=== PATIENT | female | born 1960 | race Caucasian/White ===

== ENCOUNTER → 2019-11-05 11:22 | Outpatient (CLI) | payer MEDICARE, MEDICAID, SELFPAY ==
--- NOTE | 2019-11-05 11:27 | NM_ITS ---
APPROVED REPORT Exam: Nuclear Stress Test Indication: HTN, OBESITY, D.M., HYPERLIPIDEMIA, FORMER SMIKER, FM HX, SOB, SYNCOPE, FATIGUE, STROKE Patient Location: Outpatient Stress Tech: Re Borges [place] Tech:Sonia Galdamez ARRPatrick RT(R)(N) Ht: 5 ft 10 in Wt: 255 lbs Bra Size: D HR: 63 bpm BP: 120/71 mmHg BSA: 2.31 m2 BMI: 36.5 History: HTN, OBESITY, D.M., HYPERLIPIDEMIA, FORMER SMIKER, FM HX, SOB, SYNCOPE, FATIGUE, STROKE Procedure: Patient received a 0.4 mg of intravenous Lexiscan, resting heart rate 63 bpm, resting blood pressure 120/71 mmHg, with Lexiscan maximum heart rate achived was 75 bpm which is Less than 85 % of the maximum predicted heart rate and blood pressure was 118/63 mmHg. Electrocardiogram Resting electrocardiogram showed sinus rhythm, with Lexiscan there is less than 1.[address] segment depression noted from the baseline EKG. The EKG portion of the Lexiscan Myoview is nondiagnostic. Cardiac Stress and Resting SPECT Images: Cardiac Stress and Resting SPECT images were obtained using technetium 99m Myoview 31.1 mCi stress and 10.62 mCi at rest. Gated SPECT for analysis of segmental wall motion and calculation of the ejection fraction also done. Cardiac stress and resting SPECT images show decrease tracer activity in the anterolateral wall which improves on the resting images suggestive of reversible ischemia, computer derived ejection fraction is 60% with no regional wall motion abnormality, right ventricle is normal size and contractility. This is study is technically limited due to patient's body habitus. Conclusion: 1. The EKG portion of the Lexiscan Myoview is nondiagnostic. 2. Scintigraphic evidence of mild reversible ischemia involving the anterolateral wall, however this study is technically limited due to patient's body habitus, possibility of soft tissue attenuation cannot be entirely excluded, computer derived ejection fraction 60% with no regional wall motion abnormality, right ventricle is normal size and contractility. 3. Likely abnormal Lexiscan Myoview study. Electronically signed by : Marc Juarez, 11/05/2019 20:34:30
--- NOTE | 2019-11-05 11:27 | CT_ITS ---
PROCEDURE: CT HEAD/BRAIN WO CON CLINICAL INDICATION: dizziness, hx of TIA Left arm and leg weakness COMPARISON: No exams were available for comparison TECHNIQUE: Axial images obtained. All CT scans at the facility use one or more dose reduction, viz: automated exposure control, ma/kV adjustment per patient size (including targeted exams where dose is matched to indication, i.e. head), or iterative reconstruction technique. FINDINGS: No midline shift, mass effect, intracranial hemorrhage, hydrocephalus, or extra-axial fluid collection is evident. The calvarium has an unremarkable appearance. No mastoid effusion. No sinus air-fluid level. IMPRESSION: No acute intracranial finding Dictated by: Kiran Lacy MD 11/05/2019 16:57 Electronically signed by Kiran Lacy MD in [place] 11/05/2019 16:57
--- NOTE | 2019-11-05 11:29 | CA_ITS ---
APPROVED REPORT Left Lower Extremity Venous Study for DVT. Aging Room Operator: Joy Weiss RVT Indications Lower Extremity Pain: Lower Extremity Edema: Left Shortness of breath History of Smoking edema Risk Factors Obesity History of Smoking Vein Imaging CFV (L): compressive, spontaneous, phasic, augmentation FEM (L): compressive, spontaneous, phasic, augmentation POP (L): compressive, spontaneous, phasic, augmentation PTV (L): Compressible GSV (L): Compressible Peroneals (L):Compressible GAS (L): Compressible Findings Study suggests no evidence of DVT of the left lower extremity. Study suggests no evidence of SVT of the left lower extremity. Conclusion No evidence of DVT or superficial thrombophlebitis in the veins scanned of the left lower extremity. Electronically signed by : Kiran Lacy MD 11/05/2019 17:17:40
--- NOTE | 2019-11-05 11:29 | CA_ITS ---
APPROVED REPORT EXAM: Comprehensive 2D, Doppler, and color-flow Echocardiogram Application Development Liaison: Maya Cadet CRT Ht: 5 ft 9 in Wt: 257lbs BSA: 2.30 BP: 168/87 mmHg Indications: Chest Pain, Shortness of Breath, Diabetes, Peripheral Edema, Hyperlipidemia, Hypertension/HDD, TIA 2D Dimensions LVOT 1.96 cm (M/F) 1.5-2.5 M-Mode Dimensions RVDd 2.84 cm (0.9-2.6) LVDd 5.34 cm (3.5-5.7) LVDs 3.69 cm (3.5-5.7) IVSd 1.36 cm (0.6-1.1) PWd 0.59 cm (0.6-1.1) EF (Teich) 58.00% FS 30.90% EDV (Teich) 137.70 mL ESV (Teich) 57.80 mL LV Diastology E/A Ratio 1.07 Mitral Valve MV A Velocity 66.00 (40-130 cm/s) Left Ventricle Left atrium is mildly enlarged, left ventricle is normal size, mild concentric left ventricular hypertrophy, visually estimated ejection fraction 55% with no regional wall motion abnormality, grade 1 diastolic dysfunction seen without tissue Doppler evidence of raise left atrial pressure. Right Ventricle Right atrium and right ventricle are normal size and contractility. Aortic Valve Aortic valve is minimally thickened and fibrosed, there is no aortic stenosis or aortic insufficiency. Mitral Valve Mitral valve is grossly normal, there is mild mitral regurgitation. Tricuspid Valve Tricuspid valve is grossly normal, there is mild tricuspid regurgitation, calculated right ventricular systolic pressure within normal range. Great Vessels Aortic root is normal size. Pericardium No significant pericardial effusion noted. Conclusion 1. Mildly enlarged left atrium, normal left ventricular size, mild concentric left ventricular hypertrophy, visually estimated ejection fraction 55% with no regional wall motion abnormality, grade 1 diastolic dysfunction seen without tissue Doppler evidence of raise left atrial pressure. 2. Mild mitral and tricuspid regurgitation, calculated right ventricular systolic pressure within normal range. 3. No significant pericardial effusion noted. Electronically signed by : Marc Juarez, 11/05/2019 19:57:01
--- NOTE | 2019-11-05 11:29 | CA_ITS ---
APPROVED REPORT Exam: Pharmacologic Technologist: Re Borges Ht: 5 ft 9 in Wt: 257 lbs BSA: 2.30 m2 HR: 63 bpm BP: 120/71 mmHg Indications: Shortness of Air, LLE edema, Headaches Medical History Medications: Levothyroxine,,,,, Furosemide (LASIX),,,,, Metformin,,,,, Gabapentin,,,,, Diazepam,,,,, Glimepiride,,,,, TopIRAMATE,,,,, Albuterol,,,,, CloPIdogrel,,,,, Ibuprofen,,,,, DulOXETINE,,,,, LoraTidine,,,,, Stress Test Details Test: LEXISCAN HR Resting HR: 64 bpm Max Heart Rate (APMHR): 162 bpm Max HR Achieved: 77 bpm Target HR (85% APMHR): 137 bpm % of APMHR: 47 Recovery HR: 73 bpm BP Resting BP: 120.0/71.0 mmHg Max BP: 130.0/63.0 mmHg Recovery BP: 130.0/63.0 mmHg ECG Clinical Exercise duration: 04:02 min Highest Stage Achieved: Exercise capacity: 1.0 METs Stress ECG Conclusion Resting ECG: Normal sinus rhythm, low voltage QRS Symptoms: Mild shortness of air, brief stomach discomfort. No chest pain. Arrhythmias/Ectopy: None ST-T Changes: No significant changes. Conclusion: Unremarkable Lexiscan stress. Myoview images reported separately. Test Summary REST . . . . . . . Resting REST 04:12 . . 64 . 120/ 71 . . Stage 1 . . . . . . . Myoview Injected Stage 1 01:00 . . 72 . . . . Stage 2 01:00 . . 75 . . . . Stage 3 01:00 . . 74 . 117/ 63 . . Stage 4 01:00 . . 72 . 115/ 64 . . Stage 4 01:02 . . 72 . 115/ 64 . Stop exercise at 04:02 RECOVERY 01:00 . . 73 . 122/ 66 . . RECOVERY 02:00 . . 72 . 122/ 66 . . RECOVERY 03:00 . . 72 . 122/ 66 . . RECOVERY 03:24 . . 71 . 130/ 63 . . Electronically signed by : Marc Juarez, 11/05/2019 20:31:19
== END ==
PROVIDERS: PCP Physician Assistant Medical; Visit Provider Urology
DX: R42 Dizziness and giddiness (principal); R07.9 Chest pain, unspecified; R06.00 Dyspnea, unspecified; E11.9 Type 2 diabetes mellitus without complications; E78.2 Mixed hyperlipidemia; I11.0 Hypertensive heart disease with heart failure; R60.0 Localized edema
CPT/HCPCS: 70450; 78452; 93017; 93306; 93971; A9502; J2785

== ENCOUNTER 2019-12-19 07:09 | Day surgery (SDC) | payer MEDICARE, MEDICAID, SELFPAY ==
[2019-12-19] VITALS (13 sets, daily range): BP systolic 95–132; BP diastolic 53–83; PULSE 67–76; RESP 16–20; TEMP 36.6–36.8; O2SAT 90–100; BMI 38.2
--- NOTE | 2019-12-19 | IR_ITS ---
APPROVED REPORT Patient Location: Outpatient PROCEDURES Left heart catheterization Left ventriculogram Selective coronary angiogram INDICATION Angina pectoris, Abnormal stress test Informed consent was obtained prior to the procedure. COMPLICATIONS NONE Estimated Blood Loss: LESS THAN 10 ML TECHNIQUE One percent lidocaine used to anesthetize the right anterior aspect of the wrist. The right radial artery was accessed via the Seldinger technique. A 6 Polish sheath was placed in the right radial artery. 2.5 mg of verapamil, 800 mcg of nitroglycerin, 1mg Lidocaine and 5000 U Heparin were given through the arterial sheath. The trap catheter and 6 Polish JL 3 were also used to perform left heart catheterization, left ventriculogram and selective coronary angiogram. At the end of the procedure the sheath was removed good hemostasis was achieved using Traclet band, patient was transferred to the postop holding area in stable condition. ANGIOGRAPHIC RESULTS The left main artery Has an ostial proximal 10% narrowing The left anterior descending artery Is a large-caliber vessel with mild proximal and mid vessel 10% luminal irregularities The circumflex artery Is nondominant gives rise to 3 obtuse marginal arteries. The moderate first obtuse obtuse marginal artery has a proximal smooth 40 to 50% stenosis The right coronary artery Dominant normal The LLANES ventriculogram reveals Normal 65% The left ventricular end-diastolic pressure 20 mmHg IMPRESSION Mild ostial left main disease Moderate disease in the first obtuse marginal artery Normal ejection fraction Mildly elevated LVEDP PLAN 1. Medical management Electronically signed by : Wili Orourke, 12/19/2019 08:58:37
[2019-12-19 07:51] LABS: Basophils # 0.1 K/mm3 (0-0.2); Basophils % 0.6 % (0.1-2.0); Eosinophils # 0.3 K/mm3 (0.0-0.4); Eosinophils % 2.5 % (0.1-12.0); Hematocrit 45.2 % (37.0-47.0); Hemoglobin 14.9 g/dL (12.2-16.2); Lymphocytes # 2.7 K/mm3 (0.7-4.5); Lymphocytes % 22.7 % (10-50); Mean Corpuscular Hemoglobin 30.4 pg (27.0-31.2); Mean Corpuscular Volume 92.2 fl (81-99); Mean Platelet Volume 9.4 fl (7.4-10.4); Monocytes # 0.5 K/mm3 (0.1-1.0); Monocytes % 4.4 % (1.7-9.3); Neutrophils # 8.4 K/mm3 (1.8-7.8); Neutrophils % 69.9 % (37.0-80.0); Platelet Count 167 K/mm3 (142-424); Red Cell Distribution Width 14.5 % (11.5-17.5)
[2019-12-19 07:55] LABS: Chloride 98 mmol/L (98-107); Potassium 4.1 mmoL/L (3.5-5.1); Sodium 139 mmol/L (136-145)
[2019-12-19 07:58] LABS: Anion Gap 16.1 mEq/L (5-15); Blood Urea Nitrogen 14 mg/dl (7-17); Calcium 9.8 mg/dl (8.4-10.2); Carbon Dioxide 29 mmol/L (22.0-30.0); Creatinine Clearance Estimated 142 mL/min (50-200); Estimated Glomerular Filt Rate 74 ml/min (>60); GFR (African American) 89 ML/MIN (>60); Glucose 236 mg/dl (74-100)
[2019-12-19 08:19] LABS: Coronavirus 19 IgG Antibody Negative (Negative); Coronavirus 19 IgM Antibody Negative (Negative)
== END 2019-12-19 12:02 | disposition home or self-care (01) ==
LOC: CATHLAB 07:11
PROVIDERS: PCP Physician Assistant Medical; Visit Provider Internal Medicine
DX: I25.118 Atherosclerotic heart disease of native coronary artery with other forms of angina pectoris (principal); I11.0 Hypertensive heart disease with heart failure; I50.32 Chronic diastolic (congestive) heart failure; E11.9 Type 2 diabetes mellitus without complications; Z79.4 Long term (current) use of insulin; Z79.02 Long term (current) use of antithrombotics/antiplatelets; E03.9 Hypothyroidism, unspecified; E78.5 Hyperlipidemia, unspecified; Z79.899 Other long term (current) drug therapy
CPT/HCPCS: 80048; 85025; 86328; 93458; 99152; C1725; C1769; J1644; J2405; Q9967

== ENCOUNTER → 2021-01-04 11:12 | Outpatient (CLI) | payer MEDICARE, MEDICAID, SELFPAY | PROVIDERS: PCP Nurse Practitioner Family; Visit Provider Physician Assistant | DX: R00.2 Palpitations (principal) | CPT/HCPCS: 93270 ==

== ENCOUNTER → 2021-06-30 13:14 | Outpatient (CLI) | payer MEDICARE, MEDICAID, SELFPAY ==
--- NOTE | 2021-06-30 13:15 | CA_ITS ---
FINAL REPORT TECHNIQUE: Color Doppler, duplex Doppler and compression sonography of the left lower extremity deep venous systems was performed. CLINICAL HISTORY: lt edema for a long time per patient. CAD, diabetes, HTN, HLD. FINDINGS: There is no evidence of deep venous thrombosis from the level of the groin to the calf. The veins are patent and compressible. IMPRESSION: No evidence of deep venous thrombosis left lower extremity. Reviewed, Interpreted and Dictated by Juve Elmore III, MD Transcribed by Oscar Rivera Authenticated by Juve Elmore III, MD on 06/30/2021 03:29:21 PM [facility]
== END ==
PROVIDERS: PCP Nurse Practitioner Family; Visit Provider Internal Medicine
DX: R60.0 Localized edema (principal)
CPT/HCPCS: 93971

== ENCOUNTER → 2023-01-30 10:20 | Outpatient (CLI) | payer MEDICARE, MEDICAID, SELFPAY ==
--- NOTE | 2023-01-30 10:21 | CA_ITS ---
APPROVED REPORT EXAM: Comprehensive 2D, Doppler, and color-flow Echocardiogram Street Light Inspector: Nubia Lopez RT(R) Ht: 5 ft 9 in Wt: 217lbs BSA: 2.14 BP: 134/74 mmHg Indications: syncope, CP, Palpitations, edema, HTN, DM, SOB, TIA, CAD 2D Dimensions LVOT 1.95 cm (M/F) 1.5-2.5 M-Mode Dimensions RVDd 2.25 cm (0.9-2.6) LA Diam 3.53 cm (1.9-4.0) LVDd 5.62 cm (3.5-5.7) Ao Diam 3.15 cm (2.0-3.7) LVDs 4.08 cm (3.5-5.7) IVSd 0.89 cm (0.6-1.1) PWd 0.56 cm (0.6-1.1) EF (Teich) 52.60% FS 27.40% EDV (Teich) 154.90 mL ESV (Teich) 73.40 mL LV Diastology E Decel Time 187.00 (160-240 msec) E/A Ratio 0.7 MED E' 8.50 (< 7 cm/sec) E'/MED E' Ratio 6.09 (>14) LAT E' 7.20 (<10 cm/sec) E/LAT E' Ratio 7.19 (>14) Mitral Valve MV E Max Baljit. 52.00 (40-130 cm/s) MV A Velocity 72.00 (40-130 cm/s) E/A Ratio 0.72 MV Decel. Time 187.00 (160-240 ms) MV PHT 55.00 ms Left Ventricle The left ventricle is normal size. The left ventricular systolic function is normal. The left ventricular ejection fraction is within the normal range. There is normal left ventricular wall thickness. There is normal LV segmental wall motion. The left ventricular diastolic function is normal. LVEF is 55%. Right Ventricle The right ventricle is moderately dilated. The right ventricular systolic function is normal. There is increased RV wall thickness. Atria Left atrium is mildly dilated. The right atrium size is normal. There is no Doppler evidence of interatrial shunt. Aortic Valve The aortic valve opens well. There is no aortic valvular stenosis. No aortic regurgitation is present. Mitral Valve The mitral valve is normal in structure. No evidence of mitral valve stenosis. Trace mitral regurgitation. Tricuspid Valve The tricuspid valve leaflets are thin and pliable. Trace tricuspid regurgitation. There is insufficient TR jet to estimate RVSP. Pulmonic Valve The pulmonary valve is normal in structure. Trace pulmonic regurgitation. Great Vessels The aortic root is normal in size. The ascending aorta is normal in size. IVC is normal in size and collapses >50% with inspiration. Pericardium There is no pericardial effusion. Other Information Study Quality: Technically Difficult Conclusion Technically difficutl study due to poor accoustic windows. Normal biventricular systolic function. Moderate RV dilation. When directly compared to the prior study from 11/05/2019, the RV dilation is new. Electronically signed by : Jyoti Mills MD 01/31/2023 19:10:47
== END ==
PROVIDERS: PCP Nurse Practitioner Family; Visit Provider Internal Medicine
DX: E11.9 Type 2 diabetes mellitus without complications (principal); E78.5 Hyperlipidemia, unspecified; I10 Essential (primary) hypertension; I25.10 Atherosclerotic heart disease of native coronary artery without angina pectoris; R55 Syncope and collapse; Z87.891 Personal history of nicotine dependence; Z79.84 Long term (current) use of oral hypoglycemic drugs
CPT/HCPCS: 93306

== ENCOUNTER → 2023-02-08 09:02 | Outpatient (CLI) | payer MEDICARE, MEDICAID, SELFPAY ==
--- NOTE | 2023-02-08 09:02 | CT_ITS ---
FINAL REPORT TECHNIQUE: Then section axial CT images of the chest were obtained with contrast. Three-D reformatted images were also obtained.This study was performed with techniques to keep radiation doses as low as reasonably achievable (ALARA). Individualized dose reduction techniques using automated exposure control or adjustment of mA and/or kV according to the patient''s size were employed. CLINICAL HISTORY: RV dilation on echo, to rule out PE COMPARISON: None FINDINGS: There is no evidence of pulmonary embolism. There is no evidence of thoracic aortic aneurysm or dissection. There is no evidence of mediastinal or hilar mass or adenopathy. There is no evidence of pulmonary mass or suspicious nodule. There are mild ground glass opacities in the lung weeks bilaterally that may represent either mild edema or alveolitis. Mild bibasilar atelectasis is present as well. Limited images of the upper abdomen are remarkable for fatty infiltration of the liver. IMPRESSION: No evidence of pulmonary embolism. Mild ground glass opacities in the lung weeks bilaterally, likely either mild edema or alveolitis. Reviewed, Interpreted and Dictated by Juve Elmore III, MD Transcribed by Amna Sherman Authenticated and [facility]
[2023-02-08 09:41] LABS: Blood Urea Nitrogen 14 mg/dl (7-17); Estimated Glomerular Filt Rate 64 ml/min (>60); GFR (African American) 77 ML/MIN (>60)
== END ==
PROVIDERS: PCP Nurse Practitioner Family; Visit Provider Internal Medicine
DX: I25.10 Atherosclerotic heart disease of native coronary artery without angina pectoris (principal); I10 Essential (primary) hypertension; E11.9 Type 2 diabetes mellitus without complications; E78.2 Mixed hyperlipidemia; R93.1 Abnormal findings on diagnostic imaging of heart and coronary circulation; R94.31 Abnormal electrocardiogram [ECG] [EKG]; Z79.84 Long term (current) use of oral hypoglycemic drugs; Z87.891 Personal history of nicotine dependence
CPT/HCPCS: 36415; 71275; 82565; 84520; Q9967

== ENCOUNTER → 2023-02-21 08:41 | Outpatient (CLI) | payer MEDICARE, MEDICAID, SELFPAY ==
--- NOTE | 2023-02-21 08:44 | CA_ITS ---
APPROVED REPORT EXAM: Limited 2D, Doppler, and color-flow Echocardiogram Ambulance Dispatcher: Joy Weiss RVT Ht: 5 ft 9 in Wt: 215lbs BSA: 2.13 BP: 122/68 mmHg Indications: RV DILATED ON LAST ECHO,RECHECK RV,AND RVSP,CP,HTN,HLD,EX SMOKER 2D Dimensions LVOT 2.28 cm (M/F) 1.5-2.5 M-Mode Dimensions RVDd 2.97 cm (0.9-2.6) LA Diam 2.98 cm (1.9-4.0) LVDd 4.45 cm (3.5-5.7) Ao Diam 3.15 cm (2.0-3.7) LVDs 2.84 cm (3.5-5.7) IVSd 0.89 cm (0.6-1.1) PWd 0.55 cm (0.6-1.1) EF (Teich) 66.00% FS 36.20% EDV (Teich) 90.10 mL ESV (Teich) 30.60 mL Tricuspid Valve TR P. Velocity 155.00 cm/s RAP Estimate 10.00 mmHg RVSP 19.60 mmHg Other Information Study Quality: Technically Difficult Conclusion This is a limited TTE to evaluate for RV size and function, as well as estimate RVSP. Limited windows were obtained. This is a technically difficult study due to poor acoustic windows. The right ventricle appears mildly dilated. There is normal RV systolic function. The tricuspid valve leaflets are thin and pliable. Trace tricuspid regurgitation is present. There is insufficient TR jet to estimate RVSP. Electronically signed by : Jyoti Mills MD 02/21/2023 21:24:20
== END ==
PROVIDERS: PCP Nurse Practitioner Family; Visit Provider Nurse Practitioner Family
DX: I11.9 Hypertensive heart disease without heart failure (principal); Z87.891 Personal history of nicotine dependence
CPT/HCPCS: 93308

== ENCOUNTER → 2023-03-01 11:32 | Outpatient (CLI) | payer MEDICARE, MEDICAID, SELFPAY | PROVIDERS: PCP Nurse Practitioner Family; Visit Provider Nurse Practitioner Family | DX: G47.33 Obstructive sleep apnea (adult) (pediatric) (principal); I51.7 Cardiomegaly | CPT/HCPCS: G0399 ==

== ENCOUNTER 2023-05-31 12:20 | Outpatient (CLI) | payer MEDICARE, MEDICAID, SELFPAY ==
--- NOTE | 2023-05-31 12:31 | XR_ITS ---
FINAL REPORT CLINICAL HISTORY: hypoxemia COMPARISON: None FINDINGS: Two views of the chest were obtained. The heart size and pulmonary vascularity are within normal limits. The mediastinum is normal. No acute pulmonary abnormality is identified. There is no pneumothorax. The bony thorax is intact. IMPRESSION: No active cardiopulmonary disease. Reviewed, Interpreted and Dictated by Juve Elmore III, MD Transcribed by Amna Sherman Authenticated and [facility]
[2023-05-31] MEDS: ALBUTEROL 0.083% 2.5 MG/3 ML NEB IH (14:09)
--- NOTE | 2023-05-31 14:09 | PC.NURSE ---
PFT completed without incident. Albuterol 0.083% given via HHN, per written protocol, Pt tolerated tx well. Attempted to complete 6 Minute Walk Test Pt was only able to jeanne 2:24 due to Left sided weakness caused by previous stroke.
== END 2023-05-31 23:59 ==
LOC: RT 12:21
PROVIDERS: PCP Nurse Practitioner Family; Visit Provider Nurse Practitioner Family
DX: R09.02 Hypoxemia; R00.2 Palpitations; I51.7 Cardiomegaly; R60.0 Localized edema; G47.33 Obstructive sleep apnea (adult) (pediatric)
CPT/HCPCS: 71046; 94060; 94618; 94726; 94729